=== PATIENT | male | born 1980 | race African-American/Black ===

== ENCOUNTER 2023-07-13 14:32 | Inpatient (IN) | payer MEDICAID, SELFPAY ==
[2023-07-13] VITALS (9 sets, daily range): BP systolic 101–152; BP diastolic 64–92; BMI 31.5; BMI 31.3
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
[2023-07-13 10:19] LABS: % Basophils 0.3 % (0-2); % Immature Granulocytes 0.6 % (0-0.5); % Lymphocytes 11.8 % (20.5-51.1); % Monocytes 8.6 % (1.7-9.3); % Neutrophils 78.7 % (42.2-75.2); Absolute Immature Granulocytes 0.1 10^3/uL (0-0.05); Absolute Lymphocytes 1.7 10^3/uL (1.2-3.4); Absolute Monocytes 1.2 10^3/uL (0.1-0.6); Absolute Neutrophils 11.2 10^3/uL (1.4-6.5); Hematocrit 39.6 % (39.0-52.0); Hemoglobin 13.3 g/dL (13.0-18.0); Mean Corp Hgb Conc. 33.6 g/dL (33.0-37.0); Mean Corpuscular Hgb 28.4 pg (27.0-31.0); Mean Corpuscular Volume 84.6 fL (80.0-94.0); Mean Platelet Volume 9.6 fL (7.4-10.4); Nucleated Red Blood Cells % 0 % (-); Platelet Count 151 10^3/uL (130-400); Red Blood Cell Count 4.68 10^6/uL (4.70-6.10); Red Cell Dist. Width 13.9 % (11.5-14.5); White Blood Cell Count 14.2 10^3/uL (4.8-10.8)
[2023-07-13] MEDS: TYLENOL 1000 MG PO (10:21)
[2023-07-13] MEDS: NSS 1000 IV (10:21)
[2023-07-13 10:30] LABS: Lactic Acid 1.3 mmol/L (0.7-2.0)
[2023-07-13 10:32] LABS: ALT (SGPT) 21 U/L (0-50); AST (SGOT) 23 U/L (17-59); Albumin 4.1 g/dl (3.5-5.0); Alkaline Phosphatase 68 U/L (38-126); Blood Urea Nitrogen 17 mg/dl (9-20); Calcium 9.1 mg/dl (8.4-10.2); Carbon Dioxide 25 mmol/L (22-30); Chloride 103 mmol/L (98-107); Estimated Creatinine Clearance 68 ml/min; Glucose 115 mg/dl (70-99); Sodium 136 mmol/L (135-145); Total Bilirubin 0.6 mg/dl (0.2-1.3); eGFR 58.51
[2023-07-13] MEDS: CLEOCIN 50 IV (13:28)
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
[2023-07-13] MEDS: ZOSYN 50 IV (16:37)
[2023-07-13] MEDS: TYLENOL 650 MG PO ×2 (16:46→21:45)
--- NOTE | 2023-07-13 18:20 | CON.ID ---
Consultation
-
Date/Time Consultation Requested: 07/13/2023 1421
Date/Time Consultation Performed: 07/13/2023 1800
Requesting Provider: Aida Malagon
Performing Provider: Dr. Matute
Reason for Consultation: Left facial cellulitis
Chief Complaint / Past History
History of Present Illness
Ron Aguayo is a 42-year-old man being evaluated at the request of Aida Malagon regarding left facial cellulitis. History is obtained from chart review, along with patient interview.
The patient has no significant past medical history, and reports that approximately year ago he had a left lower tooth pulled. In the interim he has had no issues, but over the past 2 days has noted increasing swelling and pain along the left lower
cheek area. He reports he was seen by his dentist at the present, and there was no otologic issue. He was sent to the emergency room for further evaluation. Here, he was found to have leukocytosis, and CT imaging has revealed a 2 x 1 x 1 cm area
in the left lower cheek which likely represents a phlegmon. Small amount of gas is noted within the area. The patient has been placed on empiric antibiotics.
Currently he notes some odynophagia, but no dysphagia. He reports mild trismus. No history of trauma.
Past History
Past Surgical History: None
Allergy History:
No Known Allergies Allergy (Unverified 07/13/23 10:16)
Medications Reviewed: Yes
Current Antibiotics:
Zosyn
Social History
Tobacco: Non-Smoker
Alcohol: None
Drug: None
Personal: Single
Living: Custodial
Family History
Family History: Not Pertinent
Review of Systems
Vital Signs
Temp Pulse Resp BP Pulse Ox
100.9 F H 109 22 152/92 98
07/13/23 15:48 07/13/23 15:48 07/13/23 15:48 07/13/23 15:48 07/13/23 15:48
Physical Exam
Physical Exam
Constitutional: No Acute Distress, Comfortable and Non-toxic
Head: Normocephalic and Other (Swelling noted in the left cheek area with marked tenderness. No fluctuance appreciated.)
Eyes: Pupils Equal, Pupils Round, No Conjunctival Hemorrhage and Sclera Anicteric
Pharynx: Other (No crepitance)
Cardiovascular: Regular Rate and S1/S2; Negative S3/S4 or Murmur
Pulmonary: Clear and Non Labored; Negative Wheezes or Rhonchi
Gastrointestinal: Soft and Non Tender
Skin: Warm and Dry; Negative Rash or Jaundice
Neurological: Awake and Alert
Psychological: Calm
.
Lab / Diagnostic Study Results
07/13/23 10:09
07/13/23 10:09
Abs Immat Gran (auto) 0.1 10^3/uL (0-0.05) H 07/13/23 10:09
Absolute Neuts (auto) 11.2 10^3/uL (1.4-6.5) H 07/13/23 10:09
Absolute Lymphs (auto) 1.7 10^3/uL (1.2-3.4) 07/13/23 10:09
Absolute Monos (auto) 1.2 10^3/uL (0.1-0.6) H 07/13/23 10:09
Absolute Basos (auto) 0.0 10^3/uL (0-0.2) 07/13/23 10:09
Immature Gran % 0.6 % (0-0.5) H 07/13/23 10:09
Neutrophils % 78.7 % (42.2-75.2) H 07/13/23 10:09
Lymphocytes % 11.8 % (20.5-51.1) L 07/13/23 10:09
Monocytes % 8.6 % (1.7-9.3) 07/13/23 10:09
Eosinophils % 0.0 % (0-6) 07/13/23 10:09
Basophils % 0.3 % (0-2) 07/13/23 10:09
Lactic Acid Cancelled 07/13/23 14:15
Microbiology Results
Micro:
07/13/23 16:08 MRSA Screen - Pending
Nose
07/13/23 10:26 Blood Culture - Pending
Blood/Venous
07/13/23 10:09 Blood Culture - Pending
Blood/Venous
Imaging:
07/13/2023 CT neck: Within the superficial anterior left facial soft tissues there is an approximately 2 x 1.2 x 1.3 cm slightly low-attenuation area with surrounding soft tissue thickening and edematous changes without noted gas.
Assessment / Plan
Left facial cellulitis
Suspected developing phlegmon
Fever
Leukocytosis
Recommendations:
Continue with Zosyn; increased to 4.5 g IV every 6 hours
Recommend ENT evaluation.
Monitor pending cultures.
Monitor white count and temperature curve.
Care Review
Plan reviewed with: Physician (Hospitalist)
[2023-07-13 18:57] LABS: Urine Albumin Trace (Neg - Trace); Urine Bilirubin Negative (Negative); Urine Character Clear (Clear); Urine Color Yellow; Urine Glucose Negative (Negative); Urine Ketone Negative (Negative); Urine Leukocyte Negative (Negative); Urine Nitrite Negative (Negative); Urine Occult Blood 3+ (Negative); Urine Urobilinogen Negative (Neg - 1+); Urine pH 6.5 (5.0-9.0)
[2023-07-13 19:20] LABS: Urine White Cell None Seen /HPF (0-5)
[2023-07-13 19:25] LABS: Urine Sodium 152 mmol/L (30-90)
--- NOTE | 2023-07-13 21:08 | CON.MD ---
Consultation - Medical
-
42 yo presents c 2 day Hx swelling L cheek, denies trauma, denies dental issues, may have bit his cheek
T - 100, elevated WBC
CT shows 2 cm hypodensity c/w abscess
PE - swelling L cheek, no obvious dental issues
some erythema and fluctuance L cheek
A/P soft tissue cellulitis, poss abscess
On Zosyn
add few doses of Decadron
After local aneshthesia, I & D performed
Foul smelling purulence encountered, likely anaerobic
Aerobic and anaerobic cxs performed
Warm soaks to area TID
Cont Zosyn
Pain meds if needed
Expect improvement over next 1-2 days
[2023-07-13] MEDS: ZOSYN 100 IV (21:38)
[2023-07-13] MEDS: XYLOCAINE 1% WITH EPINEPHRINE 20 ML INFIL (21:38)
[2023-07-13] MEDS: DECADRON 6 MG IV (21:40)
[2023-07-13] MEDS: TUMS 2 TABLET PO (23:32)
[2023-07-14] MEDS: ZOSYN 100 IV ×4 (03:13→22:00)
[2023-07-14 07:00] VITALS: BP 121/59
[2023-07-14 08:27] LABS: Hematocrit 39.1 % (39.0-52.0); Mean Corp Hgb Conc. 33.2 g/dL (33.0-37.0); Mean Corpuscular Hgb 28.7 pg (27.0-31.0); Mean Corpuscular Volume 86.3 fL (80.0-94.0); Mean Platelet Volume 10.7 fL (7.4-10.4); Platelet Count 142 10^3/uL (130-400); Red Blood Cell Count 4.53 10^6/uL (4.70-6.10); Red Cell Dist. Width 13.8 % (11.5-14.5); White Blood Cell Count 14.6 10^3/uL (4.8-10.8)
[2023-07-14 08:38] LABS: Blood Urea Nitrogen 18 mg/dl (9-20); Calcium 9.1 mg/dl (8.4-10.2); Carbon Dioxide 22 mmol/L (22-30); Chloride 105 mmol/L (98-107); Estimated Creatinine Clearance 84 ml/min; Glucose 145 mg/dl (70-99); Sodium 137 mmol/L (135-145); eGFR > 60.00
[2023-07-14] MEDS: LR 1000 IV ×2 (09:34→22:00)
[2023-07-14] MEDS: DECADRON 6 MG IV (09:35)
[2023-07-14] MEDS: FLUSH (NSS) 5 FLUSH IV (09:37)
[2023-07-14] MEDS: TYLENOL 650 MG PO (09:41)
--- NOTE | 2023-07-14 12:17 | W.PN.HOSP.TC ---
Addendum entered and electronically signed by Eleuterio Rajput MD 07/15/23 12:27:
Discussed with ID.
Original Note:
Today's Communication/Plan
-
IVF
IV abx
steroids
ID recs
Assessment / Plan
Assessment / Plan
#Sepsis 2/2 Left facial cellulitis-poa
-WBC 14.2, temp 100.2
-CT neck with impression of 2.0 x 1.2 x 1.3 cm slightly low attenuation area with surrounding edematous changes within the anterior left facial superficial soft tissues most likely representing a phlegmon or developing abscess without air bubbles
within.
-Blood culture in lab neg so far
-iv Zosyn continued
-Tylenol as needed for fever and pain
-s/p ENT eval and beside I&D. Culture in lab.
-s/p decadron 2 dose. Bump in wbc due to steroids.
-fever curve improving
-Appreciate ID recs
# Acute kidney injury likely dehdyration
-Creatinine 1.5
-bladder scan
-obtain renal bladder US negative for hydro.
-FENA with prerenal.
-Cr improved to 1.2
-IVF today
#Hyperglycemia
-monitor. Check a1c
#DVT prophylaxis
-scd
#CODE status
-full code
Anticipated Discharge: > 48 hours
Subjective/Interval History
-
Date of Service: July 14, 2023
states improvement in swelling
Objective Data
-
Labs:
Laboratory Results
07/14/23
06:58
WBC 14.6 H
Hgb 13.0
Hct 39.1
Plt Count 142
Sodium 137
Potassium 4.0
Chloride 105
Carbon Dioxide 22
BUN 18
Creatinine 1.2
Glucose 145 H
Calcium 9.1
Vital Signs:
Vital Signs
Temp Pulse Resp BP Pulse Ox
97.5 F 63 18 121/59 96
07/14/23 11:15 07/14/23 07:00 07/14/23 07:00 07/14/23 07:00 07/14/23 07:00
I&O
07/13/23 07/14/23 07/15/23
06:59 06:59 06:59
Intake Total 1280 / 1280
Balance 1280 / 1280
Physical Exam
-
General: Well Developed and No Apparent Distress
HEENT: Normocephalic, Atraumatic, Moist Mucous Membranes and Other (Left side facial swelling-incision site without any drainage )
Respiratory: Clear to Auscultation
Cardiac: Regular Rhythm and S1/S2; Negative Murmur, Rub or Gallop
GI: Soft, Nontender, Nondistended and Normal Bowel Sounds; Negative Organomegaly
Rectal: Deferred by Provider
Musculoskeletal: No Clubbing, No Cyanosis and No Edema
Skin: Negative Rash
Neuro: Awake, AO x 3 and Nonfocal/Grossly Intact
Psych: Calm
Data Reviewed
-
Total Time Spent with Patient (in minutes): 55
[2023-07-14 15:00] VITALS: BP 139/88
[2023-07-14 23:00] VITALS: BP 111/55
[2023-07-15] MEDS: ZOSYN 100 IV ×4 (04:24→21:55)
[2023-07-15 06:41] LABS: Hematocrit 36.1 % (39.0-52.0); Mean Corp Hgb Conc. 33.2 g/dL (33.0-37.0); Mean Corpuscular Hgb 28.2 pg (27.0-31.0); Mean Corpuscular Volume 84.9 fL (80.0-94.0); Mean Platelet Volume 10.3 fL (7.4-10.4); Platelet Count 146 10^3/uL (130-400); Red Blood Cell Count 4.25 10^6/uL (4.70-6.10); White Blood Cell Count 15.9 10^3/uL (4.8-10.8)
[2023-07-15 07:02] LABS: Blood Urea Nitrogen 25 mg/dl (9-20); Calcium 8.9 mg/dl (8.4-10.2); Carbon Dioxide 23 mmol/L (22-30); Chloride 106 mmol/L (98-107); Estimated Creatinine Clearance 101 ml/min; Glucose 141 mg/dl (70-99); Potassium 4.5 mmol/L (3.5-5.1); Sodium 137 mmol/L (135-145); eGFR > 60.00
[2023-07-15 07:55] VITALS: BP 141/75
[2023-07-15] MEDS: LR 1000 IV (10:15)
[2023-07-15 10:26] LABS: Glycohemoglobin (HgbA1c) 5.9 % (4.0-5.6)
--- NOTE | 2023-07-15 12:24 | W.PN.HOSP.TC ---
Today's Communication/Plan
-
Await final culture data from wound
Continue Zosyn
DC fluids
Assessment / Plan
Assessment / Plan
#Sepsis 2/2 Left facial cellulitis-poa
-WBC 14.2, temp 100.2
-CT neck with impression of 2.0 x 1.2 x 1.3 cm slightly low attenuation area with surrounding edematous changes within the anterior left facial superficial soft tissues most likely representing a phlegmon or developing abscess without air bubbles
within.
-Blood culture in lab neg so far
-iv Zosyn continued
-Tylenol as needed for fever and pain
-s/p ENT eval and beside I&D. Culture in lab and growing GPC in pairs and chains
-s/p decadron 2 dose. Bump in wbc due to steroids.
-fever curve improving
-Appreciate ID recs
# Acute kidney injury likely dehdyration
-Creatinine 1.5
-bladder scan
-obtain renal bladder US negative for hydro.
-FENA with prerenal.
-Cr improved to 1
-Cardiac diet. DC fluids. Creatinine stabilized.
#Hyperglycemia
-monitor. Check a1c 5.9.
#DVT prophylaxis
-scd
#CODE status
-full code
Anticipated Discharge: 24 - 48 hours
Subjective/Interval History
-
Date of Service: July 15, 2023
States improvement in facial swelling
Tolerating diet
Objective Data
-
Labs:
Laboratory Results
07/15/23
06:24
WBC 15.9 H
Hgb 12.0 L
Hct 36.1 L
Plt Count 146
Sodium 137
Potassium 4.5
Chloride 106
Carbon Dioxide 23
BUN 25 H
Creatinine 1.0
Glucose 141 H
Calcium 8.9
Vital Signs:
Vital Signs
Temp Pulse Resp BP Pulse Ox
97.7 F 51 18 141/75 99
07/15/23 11:43 07/15/23 07:55 07/15/23 07:55 07/15/23 07:55 07/15/23 07:55
I&O
07/14/23 07/15/23 07/16/23
06:59 06:59 06:59
Intake Total 1280 / 1280 2640 / 2640
Balance 1280 / 1280 2640 / 2640
Physical Exam
-
General: Well Developed and No Apparent Distress
HEENT: Normocephalic, Atraumatic, Moist Mucous Membranes and Other (Left side facial swelling-incision site without any drainage. Significant improvement swelling since admission )
Respiratory: Clear to Auscultation
Cardiac: Regular Rhythm and S1/S2; Negative Murmur, Rub or Gallop
GI: Soft, Nontender, Nondistended and Normal Bowel Sounds; Negative Organomegaly
Rectal: Deferred by Provider
Musculoskeletal: No Clubbing, No Cyanosis and No Edema
Skin: Negative Rash
Neuro: Awake, AO x 3 and Nonfocal/Grossly Intact
Psych: Calm
[2023-07-15 15:34] VITALS: BP 111/62
--- NOTE | 2023-07-15 16:20 | CM ---
supply and distribution manager reviewed patient's chart and met with patient and patient was admitted from [facility]. 2 guards at bedside and plan is for patient to return to [facility] when stable.
Plan; Patient to return to [facility] when stable.
[2023-07-15 22:09] VITALS: BP 111/59
[2023-07-16] MEDS: ZOSYN 100 IV ×2 (04:08→09:35)
[2023-07-16 06:08] LABS: Hematocrit 35.4 % (39.0-52.0); Hemoglobin 11.7 g/dL (13.0-18.0); Mean Corp Hgb Conc. 33.1 g/dL (33.0-37.0); Mean Corpuscular Hgb 27.8 pg (27.0-31.0); Mean Corpuscular Volume 84.1 fL (80.0-94.0); Mean Platelet Volume 10.5 fL (7.4-10.4); Platelet Count 173 10^3/uL (130-400); Red Blood Cell Count 4.21 10^6/uL (4.70-6.10); Red Cell Dist. Width 14.2 % (11.5-14.5); White Blood Cell Count 9.5 10^3/uL (4.8-10.8)
[2023-07-16 06:30] LABS: Blood Urea Nitrogen 25 mg/dl (9-20); Calcium 8.6 mg/dl (8.4-10.2); Carbon Dioxide 25 mmol/L (22-30); Chloride 106 mmol/L (98-107); Estimated Creatinine Clearance 84 ml/min; Glucose 126 mg/dl (70-99); Potassium 3.8 mmol/L (3.5-5.1); Sodium 140 mmol/L (135-145); eGFR > 60.00
[2023-07-16 07:00] VITALS: BP 109/62
--- NOTE | 2023-07-16 11:03 | W.PN.ID1 ---
Date of Service
Date of Service: July 16, 2023
Today's Communication
Narrow to amoxicillin.
Assessment / Plan
Left facial cellulitis
Left facial abscess s/p I&D
- cultures with Strep pyogenes
Fever
Leukocytosis
Recommendations:
Overall improvement in swelling.
Cultures positive for strep pyogenes.
Narrow to amoxicillin 500 mg p.o. 3 times daily for an additional 5 days.
Chief Complaint
-: Other (Facial abscess.)
Subjective / Review of Systems
Review of Systems: No Fever and No Chills
Vital Signs / Physical Exam
Vital Signs
Vital Signs
Temp Pulse Resp BP Pulse Ox
98.2 F 56 17 109/62 98
07/16/23 07:00 07/16/23 07:00 07/16/23 07:00 07/16/23 07:00 07/16/23 09:10
Physical Exam
Constitutional: No Acute Distress, Comfortable and Non-toxic
Head: Other (Decreased swelling left upper cheek area. No drainage from incisional wound. Mild tissue induration appreciated)
Pulmonary: Non Labored
Neurological: Awake and Alert
Psychological: Calm
Objective Data
Lab Data
Lab Results
07/16/23 05:24
07/16/23 05:24
Estimated Creat Clear 84 ml/min 07/16/23 05:24
Lactic Acid Cancelled 07/13/23 14:15
Total Bilirubin 0.6 mg/dl (0.2-1.3) 07/13/23 10:09
AST 23 U/L (17-59) 07/13/23 10:09
ALT 21 U/L (0-50) 07/13/23 10:09
Alkaline Phosphatase 68 U/L (38-126) 07/13/23 10:09
Most recent labs reviewed.
Micro Results:
07/13/23 10:26 Blood Culture - Preliminary
Blood/Venous No Growth in 72 hours- Final report to follow
07/13/23 10:09 Blood Culture - Preliminary
Blood/Venous No Growth in 72 hours- Final report to follow
07/13/23 21:42 Wound Culture - Preliminary
Face - Left Streptococcus pyogenes
Gram Stain - Preliminary
07/13/23 21:42 Anaerobic Culture - Preliminary
Face - Left Culture pending. Anaerobic cultures are examined after 3
days incubation. Additional information to follow.
07/13/23 16:08 MRSA Screen - Final
Nose No Methicillin Resistant Staphylococcus aureus isolated.
Imaging:
07/13/2023 CT neck: Within the superficial anterior left facial soft tissues there is an approximately 2 x 1.2 x 1.3 cm slightly low-attenuation area with surrounding soft tissue thickening and edematous changes without noted gas.
Care Review
Plan reviewed with: Physician (Hospitalist)
--- NOTE | 2023-07-16 11:12 | W.PN.HOSP.TC ---
Today's Communication/Plan
-
Discharge
Assessment / Plan
Assessment / Plan
Gen-AAOx3, NAD
HEENT-NC, AT, anicteric, clear oral mm, mild left facial swelling
Neck-supple
CV-reg, no M, +S1/S2
Lungs-clear B/L
Abd-soft, NT, ND
Ext-no edema
Musculoskeletal-no cyanosis, clubbing
Skin-warm and dry
Neuro-grossly non-focal
Psych-calm, cooperative
#Sepsis 2/2 Left facial cellulitis-poa
-WBC 14.2, temp 100.2
-CT neck with impression of 2.0 x 1.2 x 1.3 cm slightly low attenuation area with surrounding edematous changes within the anterior left facial superficial soft tissues most likely representing a phlegmon or developing abscess without air bubbles
within.
-Blood culture in lab neg so far
-iv Zosyn continued
-Tylenol as needed for fever and pain
-s/p ENT eval and beside I&D. Culture in lab and growing GPC in pairs and chains
-s/p decadron 2 dose. Bump in wbc due to steroids.
Wound culture shows strep pyogenes. Infectious disease recommends changing to amoxicillin for [address] more [address] Matute. Can discharge today.
# Acute kidney injury likely volume depletion
-Creatinine 1.5, improved to 1.2.
-bladder scan
-obtain renal bladder US negative for hydro.
-FENA with prerenal.
-Cr improved to 1
-Cardiac diet. DC fluids. Creatinine stabilized.
Prediabetes
-monitor. Check a1c 5.9.
#DVT prophylaxis
-scd
#CODE status
-full code
Dispo - medically stable for discharge back to [facility]. -
Anticipated Discharge: Today
Subjective/Interval History
-
Date of Service: July 16, 2023
Patient seen and examined. No complaints. Feeling better.
Objective Data
-
Labs:
Laboratory Results
07/16/23
05:24
WBC 9.5
Hgb 11.7 L
Hct 35.4 L
Plt Count 173
Sodium 140
Potassium 3.8
Chloride 106
Carbon Dioxide 25
BUN 25 H
Creatinine 1.2
Glucose 126 H
Calcium 8.6
Vital Signs:
Vital Signs
Temp Pulse Resp BP Pulse Ox
98.2 F 56 17 109/62 98
07/16/23 07:00 07/16/23 07:00 07/16/23 07:00 07/16/23 07:00 07/16/23 09:10
I&O
07/15/23 07/16/23 07/17/23
06:59 06:59 06:59
Intake Total 2640 / 2640 2380 / 2380
Balance 2640 / 2640 2380 / 2380
Review of Systems
-
History Source: Patient
All other systems: Reviewed and negative
--- NOTE | 2023-07-16 11:15 | W.DS.TRANS ---
DC Summary - [employer]
-
Discharge Instructions:
Discharge Diagnosis/Procedures Left facial abscess with cellulitis, prediabetes
Diet Low Fat,Low Cholesterol
Activity As tolerated
Driving Restrictions As prior to admission
Bathing Restrictions None
Instructions:
Stand-Alone Forms:
Changes to Home Medications: No
Discharge Medications:
DC Medications w/original date entered in [employer]
amoxicillin 500 mg capsule 500 mg PO Q8H #0 caps 07/16/23
Home Medication Changes
Pending Results: No
--- NOTE | 2023-07-16 12:13 | CM ---
Chart reviewed -
Pt medically ready for d/c
Called [facility] [phone] - spoke with Jacob - aware pt for transfer
Plan - return to [facility]
Report - [phone]
Fax - [phone]
--- NOTE | 2023-07-16 12:14 | W.PN.ENT ---
Today's Communication
-
discharge today
Impression / Plan
-
Rapidly resolving facial abscess. He is clear for discharge today
Subjective Data
-
The patient feels much better; asymptomatic
Objective Data
-
Vital Signs
Temp Pulse Resp BP Pulse Ox
101.2 F H 56 17 109/62 98
07/16/23 11:00 07/16/23 07:00 07/16/23 07:00 07/16/23 07:00 07/16/23 09:10
Intake & Output
07/15/23 07/16/23 07/17/23
06:59 06:59 06:59
Intake:
Oral fluids 1440 / 1440 1680 / 1680
IV fluids (Total) 1000 / 1000 500 / 500
IV piggybacks 200 / 200 200 / 200
Other:
Number of approximated MODERATE 2 3
amounts of urine
Lab Results
07/16/23 05:24
07/16/23 05:24
Calcium 8.6 mg/dl (8.4-10.2) 07/16/23 05:24
Total Bilirubin 0.6 mg/dl (0.2-1.3) 07/13/23 10:09
AST 23 U/L (17-59) 07/13/23 10:09
ALT 21 U/L (0-50) 07/13/23 10:09
Alkaline Phosphatase 68 U/L (38-126) 07/13/23 10:09
Urine Color Yellow 07/13/23 18:30
Urine Clarity Clear (Clear) 07/13/23 18:30
Urine pH 6.5 (5.0-9.0) 07/13/23 18:30
Ur Specific [place] 1.010 (<1.030) 07/13/23 18:30
Urine Ketones Negative (Negative) 07/13/23 18:30
Physical Exam
-
Incision site healed with no drainage. Minimal edema, no tenderness
== END 2023-07-16 15:27 | DRG 872 ==
LOC: 3 WEST ACU 14:32
PROVIDERS: Registered Nurse; ADMITTING PHYSICIAN Hospitalist; ATTENDING PHYSICIAN Hospitalist; CONSULT PHYSICIAN Internal Medicine Infectious Disease; CONSULT PHYSICIAN Otolaryngology; EMERGENCY PHYSICIAN Emergency Medicine
DX: A40.0 Sepsis due to streptococcus, group A (principal); L03.211 Cellulitis of face; N17.9 Acute kidney failure, unspecified; L02.01 Cutaneous abscess of face; R73.9 Hyperglycemia, unspecified; R73.03 Prediabetes; E86.0 Dehydration; D72.829 Elevated white blood cell count, unspecified; Z87.891 Personal history of nicotine dependence
CPT/HCPCS: 70491; 76770; 80048; 80053; 81003; 81015; 82570; 83036; 83605; 84300; 85025; 85027; 87040; 87070; 87075; 87077; 87147; 87205; 90686; 96361; 96374; 99285; G0008; Q9967